=== PATIENT | male | born 1990 | race Caucasian/White ===

== ENCOUNTER 2016-12-17 09:49 | Emergency (ER) | payer OTHER ==
[2016-12-17] MEDS ORDERED: ONDANSETRON 4 MG/2 ML VIAL IVP STA (10:12)
[2016-12-17] MEDS ORDERED: KETOROLAC 60 MG/2 ML VIAL IVP STA (10:12)
[2016-12-17] MEDS ORDERED: SODIUM CHLORIDE 0.9% 1,000 ML IV ONE ×2 (10:14)
[2016-12-17] MEDS ORDERED: ONDANSETRON 4 MG/2 ML VIAL ONE (10:18)
[2016-12-17 10:19] LABS: BASOPHILS % (AUTO) 0.6 %; EOSINOPHILS # (AUTO) 0.2 10^3/uL (0.0-0.7); EOSINOPHILS % (AUTO) 2.1 %; HCT - HEMATOCRIT 44.6 % (42.0-52.0); HGB - HEMOGLOBIN 15.5 g/dL (14.0-18.0); LYMPHOCYTES # (AUTO) 3.9 10^3/uL (1.5-3.5); MEAN CORPUSCULAR HEMOGLOBIN 29.7 pg (27.0-31.0); MEAN CORPUSCULAR HGB CONC 34.8 g/dL (32.0-36.0); MEAN CORPUSCULAR VOLUME 85.2 fL (80.0-94.0); MEAN PLATELET VOLUME 10.4 fL (7.4-11.4); MONOCYTES # (AUTO) 0.8 10^3/uL (0.0-1.0); NEUTROPHILS # (AUTO) 3.6 10^3/uL (1.5-6.6); NEUTROPHILS % (AUTO) 42.3 %; RED BLOOD COUNT 5.24 10^6/uL (4.70-6.10); RED CELL DISTRIBUTION WIDTH 12.9 % (12.0-15.0); UNCORRECTED WHITE BLOOD COUNT 8.6 x10^3/uL; WHITE BLOOD COUNT 8.6 x10^3/uL (4.8-10.8)
[2016-12-17] MEDS ORDERED: KETOROLAC 30 MG/ML VIAL ONE (10:19)
[2016-12-17 10:32] LABS: ALBUMIN/GLOBULIN RATIO 1.5 (1.0-2.2); BILIRUBIN,TOTAL 1.1 mg/dL (0.2-1.0); CALCIUM 9.2 mg/dL (8.5-10.3); POTASSIUM 3.8 mmol/L (3.5-5.0); TOTAL PROTEIN 7.6 g/dL (6.7-8.2)
--- NOTE | 2016-12-17 10:37 | ED Physician Documentation ---
PD HPI ABD PAIN - Stated complaint Stated Complaint: ABD/BACK PX - Chief complaint Chief Complaint: Abd Pain - History obtained from History obtained from: Patient, Family - History of Present Illness Timing - onset: How many hours ago (2) Timing - duration: Hours (2) Timing - details: Abrupt onset Pain level max: 10 Pain level now: 10 Quality: Aching, Pain Location: LLQ Radiation: Left flank Improved by: Other (nothing) Worsened by: Other (nothing) Associated symptoms: Vomiting (once). No: Fever, Nausea, Hematemesis, Diarrhea , Constipation, Melena, Hematochezia, Dysuria, Hematuria, Testicular pain Similar symptoms before: Has not had sx before Recently seen: Not recently seen Review of Systems Ten Systems: 10 systems reviewed and negative Constitutional: denies: Fever, Chills Nose: denies: Rhinorrhea / runny nose, Congestion Respiratory: denies: Cough GI: denies: Nausea, Vomiting, Diarrhea Skin: denies: Rash Musculoskeletal: denies: Neck pain, Back pain Neurologic: denies: Headache PD PAST MEDICAL HISTORY - Past Medical History Past Medical History: No - Past Surgical History Past Surgical History: No - Present Medications Home Medications: Ambulatory Orders Medication Instructions Recorded Confirmed Ibuprofen [Motrin] 800 mg PO Q8H PRN #30 tablet 12/17/16 Ondansetron Odt [Zofran] 4 mg TL Q6H PRN #10 tablet 12/17/16 Oxycodone HCl/Acetaminophen 1 - 2 each PO Q6H PRN #10 tablet 12/17/16 [Percocet 5-325 mg Tablet] - Allergies Allergies/Adverse Reactions: Allergies Allergy/AdvReac Type Severity Reaction Status Date / Time No Known Drug Allergies Allergy Verified 12/17/16 10:04 - Social History Does the pt smoke?: No Smoking Status: Never smoker Does the pt drink ETOH?: No Does the pt have substance abuse?: No PD ED PE NORMAL - Vitals Vital signs reviewed: Yes - General General: Alert and oriented X 3, Well developed/nourished, Other (appears in pain) - HEENT HEENT: Moist mucous membranes - Neck Neck: Supple, no meningeal sign - Cardiac Cardiac: RRR, Strong equal pulses - Respiratory Respiratory: No respiratory distress, Clear bilaterally - Abdomen Abdomen: Soft, Non tender, Non distended - Back Back: No CVA TTP, No spinal TTP - Derm Derm: Warm and dry, No rash - Neuro Neuro: Alert and oriented X 3 - Psych Psych: Normal mood, Normal affect Results - Vitals Vitals: Vital Signs - 24 hr 12/17/16 12/17/16 12/17/16 10:02 10:07 11:48 Temperature 35.6 C L 36.0 C L Heart Rate 75 60 Respiratory 18 15 Rate Blood Pressure 116/97 H 117/71 O2 Saturation 96 100 Oxygen O2 Source Room air - Labs Labs: Laboratory Tests 12/17/16 12/17/16 12/17/16 10:10 10:10 11:30 WBC 8.6 RBC 5.24 Hgb 15.5 Hct 44.6 MCV 85.2 MCH 29.7 MCHC 34.8 RDW 12.9 Plt Count 176 MPV 10.4 Neut # 3.6 Lymph # 3.9 H [place] # 0.8 Eos # 0.2 Baso # 0.0 Absolute Nucleated RBC 0.00 Nucleated RBC % 0.0 Sodium 138 Potassium 3.8 Chloride 103 Carbon Dioxide 25 Anion Gap 10.0 BUN 15 Creatinine 1.0 Estimated GFR (MDRD) 90 Glucose 125 H Calcium 9.2 Total Bilirubin 1.1 H AST 33 ALT 48 Alkaline Phosphatase 74 Total Protein 7.6 Albumin 4.6 Globulin 3.0 Albumin/Globulin Ratio 1.5 Lipase 29 Urine Color DARK YELLOW Urine Clarity CLEAR Urine pH 6.0 Ur Specific [place] 1.025 Urine Protein NEGATIVE Urine Glucose (UA) NEGATIVE Urine Ketones NEGATIVE Urine Occult Blood LARGE H Urine Nitrite NEGATIVE Urine Bilirubin NEGATIVE Urine Urobilinogen 0.2 (NORMAL) Ur Leukocyte Esterase NEGATIVE Urine RBC TNTC H Urine WBC 0-3 Ur Squamous Epith Cells NONE SEEN Urine Bacteria Few Urine Mucus Moderate Strands Ur Microscopic Review INDICATED Urine Culture Comments NOT INDICATED - Rads (name of study) CT abdomen and pelvis without Radiology: Prelim report reviewed, EMP read contemporaneously, See rad report ( Small (3 x 2 mm) left UVJ stone. Mild prominence of the distal ureter. No la hydronephrosis) PD MEDICAL DECISION MAKING - ED course Complexity details: reviewed results, re-evaluated patient, considered differential, d/w patient, d/w family ED course: Patient is a 26-year-old male with what appears to be a left UVJ stone, 3 x 2 mm. Should pass. Pain resolved in the emergency department, likely passed the stone. No evidence of infection. Will prescribe pain medication and nausea medication in case the pain recurs for home. Patient and family counseled regarding signs and symptoms for which I believe and urgent re-evaluation would be necessary. Patient with good understanding of and agreement to plan and is comfortable going home at this time This document was made in part using voice recognition software. While efforts are made to proofread this document, sound alike and grammatical errors may occur. Departure - Departure Disposition: 01 Home, Self Care Clinical Impression: Ureteral stone Condition: Good Instructions: ED Stone Renal W Colic Follow-Up: RODOLFO ROSE [Primary Care Provider] - Within 1 week Prescriptions: Ibuprofen [Motrin] 800 mg PO Q8H PRN #30 tablet PRN Reason: PAIN &/OR FEVER Ondansetron Odt [Zofran] 4 mg TL Q6H PRN #10 tablet PRN Reason: Nausea / Vomiting Oxycodone HCl/Acetaminophen [Percocet 5-325 mg Tablet] 1 - 2 each PO Q6H PRN # 10 tablet PRN Reason: pain Comments: Drink plenty of water. Return if you worsen. The stone should pass without difficulty. Do not drink alcohol or drive while on narcotic pain medicine. Note that many narcotic pain relievers also contain tylenol/acetaminophen. Please ensure that your total dose of acetaminophen from all sources does not exceed 3 grams (3000mg) per day. You may constipated on this medication, take a stool softener such as "Colace" twice a day while you are on it. Also recommend a [id number] laxative such as senna or MiraLAX any day that you do not have a bowel movement. If you received narcotic pain medication in the emergency department, do not drive or operate machinery for the next 24 hours. Your blood pressure was elevated today on check in to the emergency department. This does not mean that you have hypertension, it is a common phenomenon to check into the emergency department and have elevated blood pressure. I recommend that you see your primary care physician within the week to have it rechecked when you're feeling better. Discharge Date/Time: 12/17/16 12:00
--- NOTE | 2016-12-17 10:57 | CT Preliminary Report ---
Exam: CT Abdomen/Pelvis W/O IMPRESSION: Small (3 x 2 mm) left UVJ stone. Mild prominence of the distal ureter. No la hydronephrosis. [facility] SITE ID: [id number]
--- NOTE | 2016-12-17 10:59 | CT Report ---
EXAM: CT ABDOMEN AND PELVIS (CT KUB) EXAM DATE: 12/17/2016 10:39 AM. CLINICAL HISTORY: L flank pain. COMPARISONS: None. TECHNIQUE: Routine axial helical CT imaging was performed through the abdomen and pelvis without IV c ontrast. Reconstructions: Coronal and sagittal. In accordance with CT protocol optimization, one or more of the following dose reduction techniques w ere utilized for this exam: automated exposure control, adjustment of mA and/or KV based on patient s ize, or use of iterative reconstructive technique. FINDINGS: Full characterization of the viscera is limited by the lack of IV and oral contrast. Lung Bases: Unremarkable. Right Kidney/Ureter: No stones, hydronephrosis, or hydroureter. No perinephric fat stranding. Left Kidney/Ureter: There is a 3 x 2 mm stone in the left UVJ. Mild prominence of the distal ureter n oted. There is no la hydronephrosis or perinephric fluid. Other Solid Organs: Noncontrast images of the solid organs are grossly unremarkable. Gallbladder/Bile Ducts: Unremarkable. Peritoneal Cavity: No free fluid, free air or la adenopathy. Bowel is grossly unremarkable. Pelvic Organs: No free fluid or adenopathy. Vasculature: Unremarkable. IMPRESSION: Small (3 x 2 mm) left UVJ stone. Mild prominence of the distal ureter. No la hydronephrosis. [facility] Referring Provider Line: [phone] SITE ID: [id number]
[2016-12-17 11:38] LABS: BILIRUBIN,URINE NEGATIVE (NEGATIVE)
[2016-12-17 11:39] LABS: UA w/ MICROSCOPIC CHARGE YES
[2016-12-17 11:49] VITALS: BP 117/71
[2016-12-17 12:16] LABS: UR CULTURE IF IND NOT INDICATED; WBC,URINE 0-3 /HPF (0-3)
== END 2016-12-17 12:00 | disposition home or self-care (01) ==
LOC: ED 09:49
DX: N20.1 Calculus of ureter (principal); R03.0 Elevated blood-pressure reading, without diagnosis of hypertension
CPT/HCPCS: 36415; 74176; 80053; 81001; 81003; 83690; 85025; 87086; 96361; 96374; 96375; 99283